=== PATIENT | female | born 1970 | race Caucasian/White ===

== ENCOUNTER → 2020-07-17 | Outpatient (CLI) | payer OTHER | LOC: KOH-I 12:20 | DX: M25.562 Pain in left knee (principal); M25.561 Pain in right knee | CPT/HCPCS: 73564 ==

== ENCOUNTER → 2020-07-26 | Outpatient (CLI) | payer OTHER | LOC: KOH-I 14:42 | DX: M79.605 Pain in left leg (principal) | CPT/HCPCS: 93925 ==

== ENCOUNTER → 2020-08-01 | Outpatient (CLI) | payer OTHER | LOC: US 09:28 | DX: R94.5 Abnormal results of liver function studies (principal) | CPT/HCPCS: 76700 ==